=== PATIENT | male | born 1940 | race Caucasian/White ===

== ENCOUNTER 2018-05-29 20:26 | Emergency (ER) | payer BC, OTHER ==
[~2018-05-29] VITALS: Ht 185.4 cm; Wt 90.7 kg
[~2018-05-29 20:26] MED LIST: LIP10; WARF1TAB2
[2018-05-29 20:36] VITALS: BP_SYST 188
[2018-05-29] MEDS ORDERED: ACETAMINOPHEN 500 MG TABLET PO ONE (21:00)
[2018-05-29] MEDS ORDERED: NACL 0.9% 1,000 ML IV ONE (21:00)
[2018-05-29 21:19] LABS: BASOPHILS % (AUTO) 0.4 % (0.0-2.0); EOSINOPHILS # (AUTO) 0.1 K/uL (0.0-0.4); EOSINOPHILS % (AUTO) 0.9 % (0.0-4.0); HEMATOCRIT 50.5 % (36-54); HEMOGLOBIN 16.4 g/dL (14.0-18.0); LYMPHOCYTES # (AUTO) 1.2 K/uL (1.0-5.5); LYMPHOCYTES % (AUTO) 15.6 % (20.5-51.5); MEAN CORPUSCULAR HEMOGLOBIN 31 pg (27-31); MEAN CORPUSCULAR HGB CONC 33 % (32-36); MEAN CORPUSCULAR VOLUME 94 fL (79.0-98.0); MONOCYTES # (AUTO) 0.5 K/uL (0.0-1.0); MONOCYTES % (AUTO) 6.8 % (1.7-9.3); NEUTROPHILS # (AUTO) 5.7 K/uL (1.8-7.7); NEUTROPHILS % (AUTO) 76.3 % (40.0-70.0); PLATELET COUNT (AUTO) 135 K/uL (130-430); RED BLOOD CELL COUNT(AUTO) 5.36 MIL/uL (4.2-6.2); RED CELL DISTRIBUTION WIDTH 13.1 % (9.0-15.0); WHITE BLOOD COUNT (AUTO) 7.5 K/uL (4.8-10.8)
[2018-05-29 21:33] LABS: ANION GAP 9 (5-15); CALCIUM 9.4 mg/dL (8.4-11.0); CHLORIDE 105 mmol/L (98-107); GLUCOSE 119 mg/dL (70-99); POTASSIUM 3.6 mmol/L (3.5-5.1); SODIUM SERUM 143 mmol/L (136-145); UREA NITROGEN, BLOOD 22 mg/dL (8-21)
[2018-05-29 21:45] LABS: ALANINE AMINOTRANSFERASE 36 U/L (12-78); ALBUMIN 4.3 g/dL (3.4-4.8); ASPARTATE AMINOTRANSFERASE 32 U/L (10-37)
[2018-05-29 21:51] LABS: INR 4.5 (0.80-1.20)
[2018-05-29 22:07] LABS: BILIRUBIN,URINE NEGATIVE (NEGATIVE); CLARITY/URINE CLEAR (CLEAR); COLOR,URINE YELLOW (YELLOW); GLUCOSE,URINE NEGATIVE (NEGATIVE); KETONES,URINE NEGATIVE (NEGATIVE); LEUKOCYTE ESTERASE ,URINE NEGATIVE (NEGATIVE); NITRITE, URINE NEGATIVE (NEGATIVE); PH,URINE 5.5 (5.0-8.0); PROTEIN URINE 1+ (NEGATIVE); UROBILINOGEN,URINE 0.2 (0.2-1.0)
[2018-05-29 22:09] LABS: BLOOD, URINE TRACE (NEGATIVE)
[2018-05-29 22:20] LABS: BACTERIA,URINE FEW /HPF (None Seen); WBC,URINE 0-3 /HPF (0-3)
[2018-05-29 22:21] LABS: CALCIUM OXALATE CRYSTALS,UR 0-10 /HPF (None Seen); MUCUS,URINE None Seen /LPF (None Seen)
[2018-05-29 22:30] VITALS: BP_SYST 167
== END 2018-05-29 22:30 | disposition home or self-care (01) ==
LOC: SED 20:26
DX: S00.03XA Contusion of scalp, initial encounter (principal); E86.0 Dehydration; D68.8 Other specified coagulation defects; I10 Essential (primary) hypertension; F03.90 Unspecified dementia, unspecified severity, without behavioral disturbance, psychotic disturbance, mood disturbance, and anxiety; Z86.79 Personal history of other diseases of the circulatory system; W01.0XXA Fall on same level from slipping, tripping and stumbling without subsequent striking against object, initial encounter; Y93.89 Activity, other specified; Y92.89 Other specified places as the place of occurrence of the external cause; Y99.8 Other external cause status
CPT/HCPCS: 36415; 70450; 71045; 80053; 81000; 84484; 85025; 85610; 85730; 93005; 96360; 99285; J7030

== ENCOUNTER 2019-05-17 14:36 | Inpatient (IN) | payer BC ==
[~2019-05-17] VITALS: Ht 185.4 cm; Wt 85.7 kg
[2019-05-17 14:48] VITALS: BP_SYST 144
[2019-05-17] MEDS ORDERED: LORazepam 2 MG/ML VIAL IM ONE (15:30)
[2019-05-17 15:46] LABS: BASOPHILS % (AUTO) 0.3 % (0.0-2.0); EOSINOPHILS # (AUTO) 0.1 K/uL (0.0-0.4); EOSINOPHILS % (AUTO) 0.8 % (0.0-4.0); HEMATOCRIT 48.4 % (36-54); LYMPHOCYTES # (AUTO) 1.6 K/uL (1.0-5.5); LYMPHOCYTES % (AUTO) 18.8 % (20.5-51.5); MEAN CORPUSCULAR HEMOGLOBIN 33 pg (27-31); MEAN CORPUSCULAR HGB CONC 33 % (32-36); MEAN CORPUSCULAR VOLUME 99 fL (79.0-98.0); MONOCYTES # (AUTO) 0.9 K/uL (0.0-1.0); MONOCYTES % (AUTO) 10.9 % (1.7-9.3); NEUTROPHILS % (AUTO) 69.2 % (40.0-70.0); PLATELET COUNT (AUTO) 130 K/uL (130-430); RED BLOOD CELL COUNT(AUTO) 4.88 MIL/uL (4.2-6.2); RED CELL DISTRIBUTION WIDTH 14.7 % (9.0-15.0); WHITE BLOOD COUNT (AUTO) 8.7 K/uL (4.8-10.8)
[2019-05-17 16:08] LABS: ANION GAP 7 (5-15); CALCIUM 9.4 mg/dL (8.4-11.0); CHLORIDE 103 mmol/L (98-107); CREATININE 1.03 mg/dL (0.55-1.30); GLUCOSE 114 mg/dL (70-99); POTASSIUM 4.2 mmol/L (3.5-5.1); SODIUM SERUM 140 mmol/L (136-145); UREA NITROGEN, BLOOD 16 mg/dL (8-21)
[2019-05-17] MEDS ORDERED: WARF2.5T2 PO (17:05)
[2019-05-17] MEDS ORDERED: WARF5TAB2 PO (17:05)
[2019-05-17] MEDS ORDERED: SER25 PO (17:05)
[2019-05-17] MEDS ORDERED: LIP40 PO (17:05)
[2019-05-17] MEDS ORDERED: BISO5TAB15 PO (17:05)
[2019-05-17 19:42] LABS: PROTHROMBIN TIME 29.3 SECS (9.5-12.5)
[2019-05-17 20:00] VITALS: BP_SYST 166
[2019-05-17] MEDS: ATORVASTATIN 20 MG TABLET PO SCH (20:50)
[2019-05-17] MEDS: QUEtiapine FUMARATE 25 MG TABLET PO SCH (20:50)
[2019-05-17] MEDS: D5NS 1,000 ML IV SCH (20:50)
[2019-05-17 21:00] VITALS: BP_SYST 141
[2019-05-17] MEDS ORDERED: LORazepam 2 MG/ML VIAL IVP SCH (21:45)
[2019-05-17 22:00] VITALS: BP_SYST 152
[2019-05-17 22:21] VITALS: BP_SYST 153
[2019-05-17 23:00] VITALS: BP_SYST 167
[2019-05-18] VITALS: BP_SYST 120
[2019-05-18 01:00] VITALS: BP_SYST 162
[2019-05-18] MEDS ORDERED: LORazepam 2 MG/ML VIAL IVP SCH (05:15)
[2019-05-18 05:49] LABS: BASOPHILS # (AUTO) 0.1 K/uL (0.0-0.2); BASOPHILS % (AUTO) 0.8 % (0.0-2.0); EOSINOPHILS # (AUTO) 0.1 K/uL (0.0-0.4); HEMATOCRIT 46.3 % (36-54); HEMOGLOBIN 15.5 g/dL (14.0-18.0); LYMPHOCYTES # (AUTO) 1.2 K/uL (1.0-5.5); LYMPHOCYTES % (AUTO) 16.7 % (20.5-51.5); MEAN CORPUSCULAR HEMOGLOBIN 33 pg (27-31); MEAN CORPUSCULAR HGB CONC 33 % (32-36); MEAN CORPUSCULAR VOLUME 98 fL (79.0-98.0); MONOCYTES # (AUTO) 0.9 K/uL (0.0-1.0); MONOCYTES % (AUTO) 12.2 % (1.7-9.3); NEUTROPHILS % (AUTO) 69.3 % (40.0-70.0); PLATELET COUNT (AUTO) 105 K/uL (130-430); RED BLOOD CELL COUNT(AUTO) 4.74 MIL/uL (4.2-6.2); RED CELL DISTRIBUTION WIDTH 14.1 % (9.0-15.0); WHITE BLOOD COUNT (AUTO) 7.3 K/uL (4.8-10.8)
[2019-05-18] MEDS: D5NS 1,000 ML IV SCH ×2 (05:50→16:22)
[2019-05-18 06:11] LABS: ALANINE AMINOTRANSFERASE 28 U/L (12-78); ALBUMIN 3.2 g/dL (3.4-4.8); ANION GAP 4 (5-15); ASPARTATE AMINOTRANSFERASE 31 U/L (10-37); CALCIUM 8.6 mg/dL (8.4-11.0); CHLORIDE 104 mmol/L (98-107); CREATININE 0.83 mg/dL (0.55-1.30); GLUCOSE 127 mg/dL (70-99); POTASSIUM 3.3 mmol/L (3.5-5.1); SODIUM SERUM 135 mmol/L (136-145); TOTAL BILIRUBIN 1.2 mg/dL (0.0-1.0); UREA NITROGEN, BLOOD 13 mg/dL (8-21)
[2019-05-18 08:03] VITALS: BP_SYST 113
[2019-05-18 12:00] VITALS: BP_SYST 129
[2019-05-18] MEDS ORDERED: POTASSIUM CHLORIDE 20 MEQ TAB.PRT.SR PO ONE (15:45)
[2019-05-18] MEDS: HALOPERIDOL 1 MG TABLET (HALDOL) PO PRN ×2 (16:15→21:35)
[2019-05-18 16:30] VITALS: BP_SYST 146
[2019-05-18 19:45] VITALS: BP_SYST 141
[2019-05-18] MEDS: ATORVASTATIN 20 MG TABLET PO SCH (21:29)
[2019-05-18] MEDS: QUEtiapine FUMARATE 25 MG TABLET PO SCH (21:30)
[2019-05-18] MEDS ORDERED: LORazepam 2 MG/ML VIAL IVP ONE (21:30)
[2019-05-19 00:30] VITALS: BP_SYST 138
[2019-05-19 05:54] LABS: INR 2.6 (0.80-1.20); PROTHROMBIN TIME 26.2 SECS (9.5-12.5)
[2019-05-19] MEDS: D5NS 1,000 ML IV SCH ×3 (06:18→22:14)
[2019-05-19 08:00] VITALS: BP_SYST 119
[2019-05-19 13:08] VITALS: BP_SYST 146
[2019-05-19 16:50] VITALS: BP_SYST 142
[2019-05-19 20:00] VITALS: BP_SYST 154
[2019-05-19] MEDS: ATORVASTATIN 20 MG TABLET PO SCH (22:15)
[2019-05-19] MEDS: QUEtiapine FUMARATE 25 MG TABLET PO SCH (22:15)
[2019-05-19] MEDS: HALOPERIDOL 1 MG TABLET (HALDOL) PO PRN (22:15)
[2019-05-20 00:34] VITALS: BP_SYST 129
[2019-05-20 08:00] VITALS: BP_SYST 157
[2019-05-20 12:00] VITALS: BP_SYST 138
[2019-05-20 16:00] VITALS: BP_SYST 132
[2019-05-20] MEDS: D5NS 1,000 ML IV SCH (16:24)
[2019-05-20 20:00] VITALS: BP_SYST 131
[2019-05-20] MEDS: QUEtiapine FUMARATE 25 MG TABLET PO SCH (20:49)
[2019-05-20] MEDS: ATORVASTATIN 20 MG TABLET PO SCH (20:49)
[2019-05-21 00:02] VITALS: BP_SYST 158
[2019-05-21 05:23] VITALS: BP_SYST 135
[2019-05-21 08:00] VITALS: BP_SYST 142
[2019-05-21] MEDS ORDERED: QUEtiapine FUMARATE 25 MG TABLET PO SCH (21:00)
== END 2019-05-21 10:47 | disposition home or self-care (01) | DRG 71 ==
LOC: SED 14:36 → STU 16:48 → SIC 18:22 → STU 05-18 02:22 → SMU 05-18 11:32
PROVIDERS: ADMIT Internal Medicine Hospice and Palliative Medicine; ATTEND Internal Medicine Hospice and Palliative Medicine
DX: G93.41 Metabolic encephalopathy (principal); E44.1 Mild protein-calorie malnutrition; F01.50 Vascular dementia, unspecified severity, without behavioral disturbance, psychotic disturbance, mood disturbance, and anxiety; R62.7 Adult failure to thrive; I10 Essential (primary) hypertension; Z78.1 Physical restraint status; Z86.73 Personal history of transient ischemic attack (TIA), and cerebral infarction without residual deficits; Z95.2 Presence of prosthetic heart valve; Z79.899 Other long term (current) drug therapy; Z68.24 Body mass index [BMI] 24.0-24.9, adult
CPT/HCPCS: 36415; 70450-TC; 71045; 80048; 80053; 82607; 84443-TC; 84484; 85025; 85610-TC; 93306; 96372; 99285; J2060; J7042